=== PATIENT | female | born 2000 | race Hispanic/Latino ===

== ENCOUNTER 2021-02-22 17:07 | Inpatient (IN) | payer MEDICAID ==
[~2021-02-22] VITALS: Ht 165.1 cm; Wt 121.6 kg
[2021-02-22] MEDS ORDERED: LACTATED RINGERS 1000ML 1,000 ML IV ONE (17:29)
[2021-02-22] MEDS ORDERED: LACTATED RINGERS 500 ML 500 ML IV PRN (17:30)
[2021-02-22] MEDS ORDERED: LACTATED RINGERS 1000ML 1,000 ML IV PRN (17:30)
[2021-02-22] MEDS ORDERED: NALOXONE HCL 0.4 MG/1 ML ML IV PRN (17:30)
[2021-02-22] MEDS ORDERED: EPHEDRINE SULFATE 50 MG/ML AMPULE IVP PRN (17:30)
[2021-02-22] MEDS ORDERED: AMPICILLIN 2GM+NS 100ML 100 ML IV SCH (17:30)
[2021-02-22] MEDS ORDERED: ROPIVACAINE 0.2% 100ML VIAL 100 ML EP SCH (17:30)
[2021-02-22 18:13] LABS: APPEARANCE,URINE Clear (CLEAR); BILIRUBIN,URINE Negative (NEGATIVE); COLOR,URINE Yellow (YELLOW); GLUCOSE, URINE (UA) Negative (NEGATIVE); KETONES,URINE Negative (NEGATIVE); LEUKOCYTE ESTERASE ,URINE Trace (NEGATIVE); NITRATE,URINE Negative (NEGATIVE); OCCULT BLOOD,URINE Negative (NEGATIVE); PH,URINE 6.5 (5.0-8.0); PROTEIN,URINE Negative (NEGATIVE)
[2021-02-22 18:16] LABS: HEMATOCRIT 30.4 % (36-48); MEAN CORPUSCULAR HEMOGLOBIN 23.4 pg (27.0-33.0); MEAN CORPUSCULAR HGB CONC 30.9 g/dL (32.0-36.0); MEAN CORPUSCULAR VOLUME 75.6 fL (80-100); PLATELET COUNT (AUTO) 242 K/uL (130-400); RED BLOOD CELL COUNT(AUTO) 4.02 MIL/uL (4.00-5.50); RED CELL DISTRIBUTION WIDTH 15.1 % (11.0-15.5); WHITE BLOOD COUNT (AUTO) 10.1 K/uL (4.8-10.8)
[2021-02-22 18:39] LABS: BACTERIA,URINE Rare /HPF (None Seen); RBC,URINE 0-1 /HPF (0-1); SQUAMOUS EPITHELIAL CELL,UR Few /HPF (0-2)
[2021-02-22] MEDS ORDERED: ACETAMINOPHEN 500 MG TABLET ONE (19:48)
[2021-02-22] MEDS ORDERED: MISOPROSTOL 25 MCG TABLET ONE (19:48)
[2021-02-22] MEDS ORDERED: ACETAMINOPHEN 500 MG TABLET PO PRN (20:00)
[2021-02-22] MEDS: AMPICILLIN 1GM+NS 50ML 50 ML IV SCH (22:43)
[2021-02-23] MEDS ORDERED: IBUPROFEN 100 MG/5 ML SUSP UDCUP PO PRN (00:30)
[2021-02-23] MEDS: PROMETHAZINE HCL 25 MG/ML 1ML AMPULE IM PRN ×2 (02:29→07:27)
[2021-02-23] MEDS: MEPERIDINE-PF 50 MG/ML SYG IVP PRN ×2 (02:29→07:26)
[2021-02-23] MEDS: AMPICILLIN 1GM+NS 50ML 50 ML IV SCH ×4 (02:35→14:55)
[2021-02-23] MEDS: MISOPROSTOL 25 MCG TABLET VG SCH ×2 (03:58)
[2021-02-23] MEDS ORDERED: OXYTOCIN-LR 20 UNITS/1000 ML 1,000 ML IV SCH (06:00)
[2021-02-23 10:16] LABS: RAPID PLASMA REAGIN NONREACTIVE (NONREACTIVE)
[2021-02-23] MEDS ORDERED: CALDOLOR 800MG+NS 250ML 250 ML IV ONE (17:24)
[2021-02-23] MEDS ORDERED: CEFAZOLIN SODIUM 1 GM VIAL ONE (17:25)
[2021-02-23] MEDS ORDERED: MORPHINE PF 100MG/10ML AMP IV ONE (17:26)
[2021-02-23] MEDS ORDERED: EPINEPHRINE PF 1MG AMP ONE (17:26)
[2021-02-23] MEDS ORDERED: ONDANSETRON 4MG INJ ONE (17:28)
[2021-02-23] MEDS ORDERED: GLYCOPYRROLATE 1 MG/5 ML SYRINGE ONE (17:29)
[2021-02-23] MEDS ORDERED: SUCCINYLCHOLINE CHLORIDE 20 MG/ML 10 ML VIAL ONE (17:29)
[2021-02-23] MEDS ORDERED: LACTATED RINGERS 1000ML 1,000 ML IV SCH (17:30)
[2021-02-23] MEDS ORDERED: CEFAZOLIN SODIUM 1 GM VIAL IVP PRN (17:30)
[2021-02-23] MEDS ORDERED: CALDOLOR 800MG+NS 250ML 250 ML IV PRN (17:30)
[2021-02-23] MEDS ORDERED: METHYLERGONOVINE MALEATE 0.2 MG/1 ML ML ONE (17:37)
[2021-02-23] MEDS ORDERED: CEFAZOLIN SODIUM 1 GM VIAL IVP ONE (18:16)
[2021-02-23] MEDS ORDERED: EPHEDRINE SULFATE 50 MG/ML AMPULE ONE (18:26)
[2021-02-23] MEDS ORDERED: PHENYLEPHRINE HCL 10 MG/ML 1ML VIAL IV ONE (19:03)
[2021-02-23] MEDS ORDERED: OXYTOCIN 10 UNIT/1ML 10ML VIAL ONE (19:04)
[2021-02-23] MEDS ORDERED: DEXAMETHASONE SOD PHOSPHATE 10MG/ML 1ML VIAL ONE (19:04)
[2021-02-23] MEDS ORDERED: OXYTOCIN-LR 20 UNITS/1000 ML 1,000 ML IV PRN (20:00)
[2021-02-23] MEDS ORDERED: DEXTROSE 5 %-0.45 % NACL 1,000 ML IV PRN (20:00)
[2021-02-23] MEDS ORDERED: 0.9%NACL 10ML VIAL IVP PRN (20:00)
[2021-02-23] MEDS ORDERED: PROMETHAZINE HCL 25 MG/ML 1ML AMPULE IM PRN (20:00)
[2021-02-23] MEDS ORDERED: MEPERIDINE-PF 75 MG/ML SYG IM PRN (20:00)
[2021-02-23] MEDS ORDERED: NALOXONE HCL 0.4 MG/1 ML ML IVP PRN ×3 (21:30)
[2021-02-23] MEDS ORDERED: DiphenhydrAMINE HCL 50 MG/ML VIAL IVP PRN (21:30)
[2021-02-23] MEDS ORDERED: EPHEDRINE SULFATE 50 MG/ML AMPULE IVP PRN (21:30)
[2021-02-23] MEDS ORDERED: ONDANSETRON 4MG INJ IVP PRN (21:30)
[2021-02-23 23:00] VITALS: BP 107/57
[2021-02-24 03:13] VITALS: BP 116/61
[2021-02-24] MEDS ORDERED: PREN-18 PO (04:05)
[2021-02-24] MEDS ORDERED: DIPH,PERTUSS(ACELL),TET VAC/PF 0.5 ML VIAL IM SCH (04:30)
[2021-02-24] MEDS ORDERED: HYDROCODONE/ACETAMINOPHEN 5/325 MG TAB PO PRN (04:30)
[2021-02-24] MEDS ORDERED: LANOLIN 30GM OINTMENT TP PRN (04:30)
[2021-02-24] MEDS ORDERED: IBUPROFEN 800 MG TAB PO SCH (04:30)
[2021-02-24] MEDS ORDERED: ACETAMINOPHEN 500 MG TABLET PO PRN (04:30)
[2021-02-24] MEDS ORDERED: BISACODYL 10 MG SUPP.RECT RC PRN (04:30)
[2021-02-24 07:19] VITALS: BP 103/54
[2021-02-24 07:21] LABS: HEMATOCRIT 24.3 % (36-48); MEAN CORPUSCULAR HEMOGLOBIN 23.2 pg (27.0-33.0); MEAN CORPUSCULAR HGB CONC 30.5 g/dL (32.0-36.0); MEAN CORPUSCULAR VOLUME 76.2 fL (80-100); RED BLOOD CELL COUNT(AUTO) 3.19 MIL/uL (4.00-5.50); RED CELL DISTRIBUTION WIDTH 15.2 % (11.0-15.5)
[2021-02-24] MEDS: CALDOLOR 800MG+NS 250ML 250 ML IV SCH ×2 (08:00→15:40)
[2021-02-24 08:14] LABS: HEPATITIS Bs ANTIGEN SCREEN P Negative (Negative)
[2021-02-24] MEDS: SIMETHICONE 80 MG TAB.CHEW PO PRN ×2 (08:32→21:12)
[2021-02-24] MEDS: DOCUSATE SODIUM 100 MG CAP PO SCH ×2 (08:32→21:12)
[2021-02-24 11:35] VITALS: BP 96/45
[2021-02-24 16:14] VITALS: BP 104/52
[2021-02-24 19:20] VITALS: BP 113/49
[2021-02-24] MEDS: ACETAMINOPHEN WITH CODEINE 1 TAB TAB PO PRN (21:18)
[2021-02-24 23:09] VITALS: BP 104/46
[2021-02-25] MEDS: IBUPROFEN 800 MG TAB PO SCH ×2 (00:28→09:02)
[2021-02-25] MEDS: ACETAMINOPHEN WITH CODEINE 1 TAB TAB PO PRN (03:55)
[2021-02-25 03:56] VITALS: BP 132/90
[2021-02-25 07:14] VITALS: BP 101/46
[2021-02-25] MEDS: DOCUSATE SODIUM 100 MG CAP PO SCH (09:02)
[2021-02-25 11:12] VITALS: BP 111/71
== END 2021-02-25 12:40 | disposition home or self-care (01) | DRG 540 ==
LOC: LDH 17:07 → WSH 02-23 22:40
PROVIDERS: ADMIT Obstetrics & Gynecology; ATTEND Obstetrics & Gynecology
PROC: 10D00Z1 Extraction of Products of Conception, Low, Open Approach (ICD-10-PCS; principal; 2021-02-23 17:44)
DX: O62.1 Secondary uterine inertia (principal); E66.01 Morbid (severe) obesity due to excess calories; O77.9 Labor and delivery complicated by fetal stress, unspecified; O99.214 Obesity complicating childbirth; N83.8 Other noninflammatory disorders of ovary, fallopian tube and broad ligament; Z37.0 Single live birth; O77.0 Labor and delivery complicated by meconium in amniotic fluid; O34.83 Maternal care for other abnormalities of pelvic organs, third trimester; O90.81 Anemia of the puerperium; D64.9 Anemia, unspecified; O99.824 Streptococcus B carrier state complicating childbirth; Z3A.40 40 weeks gestation of pregnancy
CPT/HCPCS: 36415; 59510; 76805; 81001; 85027; 86592; 86701; 86850; 86900; 86901; 87340; 87390; A4344; G0378; J0171; J0290; J0330; J0690; J1100; J1200; J1741; J2175; J2210; J2274; J2370; J2405; J2550; J2590; J3490; J7120